=== PATIENT | male | born 1965 ===

== ENCOUNTER 2018-12-31 12:20 | Day surgery (SDC) | payer BC ==
--- NOTE | 2018-12-31 12:57 | NUR ---
[facility]UM[facility].
--- NOTE | 2018-12-31 16:51 | NUR ---
Discharge instructions reviewed with patient. Patient verbalizes understanding. Copy given to patient to take home. Patient States Post-Procedure ride home has been arranged. Discharged via wheelchair to private car for ride home. DID NOT CALL IN ORDER FOR TORADOL TO PHARMACY PER PATIENT REFUSAL OF NEED FOR MEDICINE. ALL BELONGINGS ACCOUNTED FOR.
== END 2018-12-31 23:02 | disposition home or self-care (01) ==
LOC: ORSCMMR 12:20 → ORD 14:00 → ORSCMMR 14:00
PROVIDERS: Orthopaedic Surgery
PROC: 0LQP0ZZ Repair Left Lower Leg Tendon, Open Approach (ICD-10-PCS; principal; 2018-12-31 12:45)
DX: S86.012A Strain of left Achilles tendon, initial encounter (principal); V00.321A Fall from snow-skis, initial encounter
CPT/HCPCS: J0690; J1885; J2250; J2405; J3010; J7120

== ENCOUNTER 2019-10-02 07:21 | Day surgery (SDC) | payer BC ==
[~2019-10-02] VITALS: Ht 185.4 cm; Wt 88.5 kg
== END 2019-10-02 09:43 | disposition home or self-care (01) ==
LOC: ORSCSDS 07:21
PROVIDERS: Surgery
PROC: 0WUF0JZ Supplement Abdominal Wall with Synthetic Substitute, Open Approach (ICD-10-PCS; principal; 2019-10-02 08:30)
DX: K42.9 Umbilical hernia without obstruction or gangrene (principal)
CPT/HCPCS: C1781; J0690; J1885; J2250; J2704; J3010; J7120

== ENCOUNTER 2021-05-19 06:20 | Day surgery (SDC) | payer BC ==
[~2021-05-19] VITALS: Ht 185.4 cm; Wt 94.4 kg
== END 2021-05-19 09:38 | disposition home or self-care (01) ==
LOC: ORSCSDS 06:20
PROVIDERS: Surgery
PROC: 0YU50JZ Supplement Right Inguinal Region with Synthetic Substitute, Open Approach (ICD-10-PCS; principal; 2021-05-19 07:30)
DX: K40.90 Unilateral inguinal hernia, without obstruction or gangrene, not specified as recurrent (principal)
CPT/HCPCS: C1781; J0690; J1100; J2250; J2405; J2704; J3010; J7120

== ENCOUNTER → 2022-06-16 | Outpatient (CLI) | payer BC ==
[2022-06-16 22:45] LABS: Adenovirus F 40/41 Not Detected (NOT DETECT); Astrovirus Not Detected (NOT DETECT); Campylobacter Sp Not Detected (NOT DETECT); Cryptosporidium Not Detected (NOT DETECT); Cyclospora Cayetanensis Not Detected (NOT DETECT); E. Coli O157 Not Detected (NOT DETECT); Entamoeba Histolytica Not Detected (NOT DETECT); Enteroaggregative E. coli-EAEC Not Detected (NOT DETECT); Enteropathogenic E. coli-EPEC Not Detected (NOT DETECT); Enterotoxigenic E. coli-ETEC Not Detected (NOT DETECT); Giardia Lamblia Not Detected (NOT DETECT); Norovirus GI/GII Not Detected (NOT DETECT); Plesiomonas Shigelloides Not Detected (NOT DETECT); Rotavirus A Not Detected (NOT DETECT); Salmonella Sp Not Detected (NOT DETECT); Sapovirus Not Detected (NOT DETECT); Shiga Toxin-prod E. coli-STEC Not Detected (NOT DETECT); Shigella/Enteroin E. coli-EIEC Not Detected (NOT DETECT); Vibrio Cholerae Not Detected (NOT DETECT); Vibrio Sp Not Detected (NOT DETECT); Yersinia Enterocolitica Not Detected (NOT DETECT)
== END ==
LOC: LAB SHORT 09:13 → LAB 09:13 → LAB FUT 06-15 11:05
PROVIDERS: Family Medicine
DX: R10.84 Generalized abdominal pain (principal); R19.7 Diarrhea, unspecified
CPT/HCPCS: 87338; 87507

== ENCOUNTER 2023-11-27 11:28 | Day surgery (SDC) | payer OTHER ==
[2023-11-27] VITALS (10 sets, daily range): BP systolic 107–158; BP diastolic 68–104
[~2023-11-27] VITALS: Ht 185.4 cm; Wt 99.0 kg
[~2023-11-27 11:28] MED LIST: CeFAZolin Sodium 2,000 MG in NS 50 ML IV SCH; FentaNYL Citrate 50 MCG/ML 2 ML Injection ONE; Lactated Ringer's 1,000 ML IV SCH; Rocuronium Bromide 10 MG/ML 5ML Injection IV ONE; TADA10TA; Vancomycin HCL 1,000 MG in NS 100 ML IV SCH; propofoL 20 ML IV ONE
--- NOTE | 2023-11-27 12:01 | NUR ---
History, Chart, Medications and Allergies reviewed before start of procedure. Lungs clear T/O to Auscultation. Patient confirms NPO status and agrees with scheduled surgery. Pre-Op teaching done. Pt verbalizes understanding.
[2023-11-27] MEDS ORDERED: FentaNYL Citrate 50 MCG/ML 2 ML Injection IV PRN ×2 (12:30)
[2023-11-27] MEDS ORDERED: Ondansetron HCl 2 MG / ML 2ML Vial IV PRN (12:30)
[2023-11-27] MEDS ORDERED: Lidocaine HCl 1% 5 ML SYR INJ ONE (12:30)
[2023-11-27] MEDS ORDERED: Midazolam HCl 1MG / ML 2ML Vial IV ONE (12:30)
[2023-11-27] MEDS ORDERED: propofoL 20 ML IV ONE ×4 (12:31→12:58)
[2023-11-27] MEDS ORDERED: HYDROmorphone HCl/Pf 1MG SYR IV PRN (12:35)
[2023-11-27] MEDS ORDERED: Bupivacaine 0.5% HCl 5 MG/ML 30MLVIAL ONE (12:36)
[2023-11-27] MEDS ORDERED: Lidocaine HCl 2% 20 ML MDV ONE (12:43)
[2023-11-27] MEDS ORDERED: Phenylephrine HCl 100 MCG/ML-NS 10MLSYR (1MG/10ML) ONE (13:07)
[2023-11-27] MEDS ORDERED: Ondansetron HCl 2 MG / ML 2ML Vial ONE (13:15)
[2023-11-27] MEDS ORDERED: Dexamethasone Sod Phos 10 MG/ML 1ML VIAL ONE (13:15)
[2023-11-27] MEDS ORDERED: Sugammadex Sodium 200 MG/2ML SDV (100 MG/ML) ONE (13:24)
[2023-11-27] MEDS ORDERED: Flumazenil 0.1 MG / ML 5ML Vial ONE (13:41)
--- NOTE | 2023-11-27 14:30 | NUR ---
INTO STEP.PT A&OX4.REPORTS 4/10 LEFT LOWER EXTREMITY PAIN. ELLYN WRAP INTACT TO LEFT LOWER EXTREMITIY WITH GOOD CAPILLARY REFILL. PT DENIES NAUSEA-PO FLUIDS GIVEN.
--- NOTE | 2023-11-27 14:46 | NUR ---
PT REPORTS 5/10 LEFT LOWER EXTREMITY PAIN, BUT DENIES NEED FOR PAIN MED. ICE PACK PLACED BEHIND LEFT KNEE.
--- NOTE | 2023-11-27 15:13 | NUR ---
DANGLED AT BEDSIDE WITH DIZZINESS. REVIEWED DISCHARGE INSTRUCTIONS WITH PT. PT DENIES QUESTIONS.PT DISCHARGED TO HOME, OUT VIA WHEELCHAIR WITH BELONGINGS AND DISCHARGE INSTRUCTION ON HAND.
== END 2023-11-27 15:13 | disposition home or self-care (01) ==
LOC: ORSCMMR 11:28 → ORD 14:00 → ORSCMMR 15:13
PROVIDERS: Orthopaedic Surgery
PROC: 0QSK34Z Reposition Left Fibula with Internal Fixation Device, Percutaneous Approach (ICD-10-PCS; principal; 2023-11-27 13:00)
PROC: 0QSH34Z Reposition Left Tibia with Internal Fixation Device, Percutaneous Approach (ICD-10-PCS; principal; 2023-11-27 13:00)
DX: S82.862A Displaced Maisonneuve's fracture of left leg, initial encounter for closed fracture (principal); S93.432A Sprain of tibiofibular ligament of left ankle, initial encounter; W01.0XXA Fall on same level from slipping, tripping and stumbling without subsequent striking against object, initial encounter; Y93.02 Activity, running
CPT/HCPCS: C1776; J0690; J1100; J2250; J2371; J2405; J2704; J3010; J7120